=== PATIENT | female | born 1945 | race Caucasian/White ===

== ENCOUNTER 2020-08-17 13:46 | Inpatient (IN) | payer MEDICARE ==
[~2020-08-17] VITALS: Ht 154.9 cm; Wt 97.6 kg
[2020-08-17] MEDS ORDERED: ASPIRIN 81 MG CHEW TAB PO ONE (15:45)
[2020-08-17 16:18] LABS: BASOPHILS # (AUTO) 0.1 (0.0-0.1); BASOPHILS % 0.5 % (0.0-1.0); EOSINOPHILS # (AUTO) 0.1 (0.0-0.4); EOSINOPHILS % 0.4 % (0.0-6.0); HEMATOCRIT 32.6 % (34.2-44.1); HEMOGLOBIN 11.2 g/dL (12.0-16.0); LYMPHOCYTES % 39.6 % (18.0-39.1); MEAN CORPUSCULAR HEMOGLOBIN 31.6 pg (28-32); MEAN CORPUSCULAR HGB CONC 34.4 g/dL (31-35); MEAN CORPUSCULAR VOLUME 92.1 fL (81-99); MONOCYTES % 7.6 % (4.4-11.3); NEUTROPHILS # (AUTO) 6.4 (2.1-6.9); NEUTROPHILS % 51.5 % (38.7-80.0); PLATELET COUNT 321 x10e3/uL (140-360); RED BLOOD COUNT 3.54 x10e6/uL (3.6-5.1); RED CELL DISTRIBUTION WIDTH 15.9 % (11.7-14.4)
[2020-08-17 16:30] LABS: ALBUMIN 1.3 g/dL (3.5-5.0); ALBUMIN/GLOBULIN RATIO 0.4 (0.8-2.0); ANION GAP 15.1 mmol/L (8-16); CREATININE, SERUM 1.28 mg/dL (0.57-1.11); POTASSIUM 4.1 mmol/L (3.5-5.1)
[2020-08-17 16:34] LABS: CALCIUM 6.8 mg/dL (8.4-10.2)
[2020-08-17 16:46] LABS: CREATINE KINASE MB 0.6 ng/mL (0-5.0)
[2020-08-17 16:57] LABS: CLARITY,URINE SL CLOUDY (CLEAR); COLOR,URINE STRAW (YELLOW); KETONES,URINE NEGATIVE (NEGATIVE); LEUKOCYTE ESTERASE ,URINE LARGE (NEGATIVE); NITRITE,URINE NEGATIVE (NEGATIVE); PROTEIN,URINE DIPSTICK NEGATIVE (NEGATIVE); URINE UROBILINOGEN 0.2 mg/dL (0.2 - 1)
[2020-08-17] MEDS ORDERED: CEFEPIME 1GM/NS 0.9% 50 ML 50 ML IV STA (17:04)
[2020-08-17] MEDS ORDERED: SODIUM CHLORIDE 0.9% 1000ML 1,000 ML IV STA ×2 (17:08→17:33)
[2020-08-17 17:11] LABS: BACTERIA,URINE MANY /HPF; WBC,URINE (MAN) 0-5 /HPF (0-5)
[2020-08-17 17:12] LABS: RBC,URINE 0-5 /HPF (0-5)
[2020-08-17] MEDS ORDERED: ALBUMIN 25% 25GM 100ML 0.25 GM/ML BTL IV ONE ×2 (18:45)
[2020-08-17] MEDS ORDERED: ALBUMIN 25% 25GM 100ML 100 ML IV ONE ×2 (19:00→20:00)
[2020-08-17] MEDS ORDERED: CALCIUM GLUCONATE 10% INJ 9.3 MEQ in SODIUM CHLORIDE 0.9% 100 ML 100 ML IV ONE (19:00)
[2020-08-17] MEDS ORDERED: DEXTROSE 50% SYRINGE 50 ML IV STA (19:04)
[2020-08-17] MEDS ORDERED: DEXTROSE 50% SYRINGE 50 ML IV ONE (19:05)
[2020-08-17] MEDS ORDERED: DICYCLOMINE HCL10 MG PO (19:17)
[2020-08-17] MEDS ORDERED: PROMETHAZINE HC25 M1 PO (19:17)
[2020-08-17] MEDS ORDERED: SENNA LAX8.6 MG PO (19:17)
[2020-08-17] MEDS ORDERED: FUROSEMIDE40 MG PO (19:17)
[2020-08-17] MEDS ORDERED: MEGESTROL ACETA40 MG PO (19:17)
[2020-08-17] MEDS ORDERED: CITALOPRAM HBR20 MG PO (19:17)
[2020-08-17] MEDS ORDERED: ZOFRAN4 MG PO (19:17)
[2020-08-17] MEDS ORDERED: ULTRAM50 MG PO (19:17)
[2020-08-17] MEDS ORDERED: PANTOPRAZOLE SO40 MG PO (19:17)
[2020-08-17] MEDS ORDERED: METOPROLOL TART50 MG PO (19:17)
[2020-08-17] MEDS ORDERED: METFORMIN HCL500 MG PO (19:17)
[2020-08-17] MEDS ORDERED: ONDANSETRON HCL INJ 2MG/ML 2ML 2 MG/ML VIAL IV PRN (20:00)
[2020-08-17] MEDS ORDERED: DEXTROSE 5%/0.45% SOD CHL 1,000 ML IV ONE (21:15)
[2020-08-17 22:00] VITALS: BP 98/45
[2020-08-17] MEDS ORDERED: DEXTROSE 50% SYRINGE 50 ML IV PRN (22:00)
[2020-08-17 23:00] VITALS: BP 100/46
[2020-08-17] MEDS ORDERED: DEXTROSE 5%/0.9% SOD CHL 1,000 ML IV SCH (23:00)
[2020-08-17] MEDS ORDERED: NOREPINEPHRINE INJ 4MG/4ML 8 MG in DEXTROSE 5% 250ML 250 ML IV PRN (23:00)
[2020-08-17 23:59] VITALS: BP 98/43
[2020-08-18] VITALS (27 sets, daily range): BP systolic 81–114; BP diastolic 34–63
[2020-08-18] MEDS ORDERED: NOREPINEPHRINE 8 MG/D5W 250 ML 250 ML ONE (00:47)
[2020-08-18] MEDS ORDERED: PNEUMOCOCCAL VACCINE POLYVALENT 23 MCG/0.5 ML VIAL IM SCH (01:50)
[2020-08-18] MEDS ORDERED: INFLUENZA VIRUS VAC SPLIT INJ 0.5 ML SYR IM SCH (01:50)
[2020-08-18 05:27] LABS: BASOPHILS % 0.2 % (0.0-1.0); EOSINOPHILS # (AUTO) 0.1 (0.0-0.4); EOSINOPHILS % 0.6 % (0.0-6.0); HEMATOCRIT 23.1 % (34.2-44.1); LYMPHOCYTES # (AUTO) 3.3 (1.0-3.2); LYMPHOCYTES % 36.6 % (18.0-39.1); MEAN CORPUSCULAR HEMOGLOBIN 32.3 pg (28-32); MEAN CORPUSCULAR HGB CONC 34.6 g/dL (31-35); MEAN CORPUSCULAR VOLUME 93.1 fL (81-99); MONOCYTES % 10.5 % (4.4-11.3); NEUTROPHILS # (AUTO) 4.7 (2.1-6.9); NEUTROPHILS % 51.8 % (38.7-80.0); PLATELET COUNT 361 x10e3/uL (140-360); RED BLOOD COUNT 2.48 x10e6/uL (3.6-5.1); RED CELL DISTRIBUTION WIDTH 15.6 % (11.7-14.4)
[2020-08-18 06:31] LABS: ALBUMIN 2.2 g/dL (3.5-5.0); ANION GAP 14.1 mmol/L (8-16); CREATININE, SERUM 1.13 mg/dL (0.57-1.11); MAGNESIUM 1.2 MG/DL (1.3-2.1); PHOSPHORUS 2.7 MG/DL (2.3-4.7); POTASSIUM 3.1 mmol/L (3.5-5.1)
[2020-08-18 06:40] LABS: CALCIUM 6.9 mg/dL (8.4-10.2)
[2020-08-18 06:50] LABS: CREATINE KINASE MB 0.7 ng/mL (0-5.0)
[2020-08-18] MEDS ORDERED: INSULIN REGULAR, HUMAN 100 UNIT/1 ML 3ML VIAL SQ SCH (07:30)
[2020-08-18] MEDS ORDERED: TRAMADOL HCL 50 MG TAB PO PRN (07:45)
[2020-08-18] MEDS ORDERED: MAGNESIUM SULFATE 2GM/50ML IV ONE (07:45)
[2020-08-18] MEDS ORDERED: MAGNESIUM SULFATE 2GM/50ML 50 ML IV ONE (08:00)
[2020-08-18 08:24] LABS: IRON 40 ug/dL (50-170); TRANSFERRIN < 70 mg/dL (180-382)
[2020-08-18] MEDS ORDERED: POTASSIUM CHLORIDE 10MEQ EA PO ONE (08:30)
[2020-08-18 08:44] LABS: THYROID STIMULATING HORMONE 2.014 uIU/mL (0.350-4.940)
[2020-08-18] MEDS: D5NS/KCL 20MEQ 1,000 ML IV SCH ×2 (09:17→19:48)
[2020-08-18] MEDS: MEGESTROL ACETATE 40 MG TAB PO SCH (09:42)
[2020-08-18] MEDS: SENNOSIDES 8.6 MG TAB PO SCH (09:42)
[2020-08-18] MEDS: PANTOPRAZOLE SOD 40 MG TABEC PO SCH (09:42)
[2020-08-18] MEDS ORDERED: POTASSIUM PHOSPHATE 20 MM in SODIUM CHLORIDE 0.9% 250ML 250 ML IV SCH (10:00)
[2020-08-18] MEDS ORDERED: IOPAMIDOL 370 MG/ML 200 ML INFUS..BTL INJ ONE (10:00)
[2020-08-18] MEDS ORDERED: SODIUM CHLORIDE 0.9% 50ML 50 ML ONE (10:00)
[2020-08-18] MEDS: INSULIN LISPRO 100 UNIT/1 ML 3ML VIAL SQ SCH ×3 (11:30→21:00)
[2020-08-18 12:31] LABS: CREATINE KINASE MB 0.7 ng/mL (0-5.0)
[2020-08-18] MEDS: ONDANSETRON HCL INJ 2MG/ML 2ML 2 MG/ML VIAL IV PRN (13:00)
[2020-08-19] VITALS (19 sets, daily range): BP systolic 95–134; BP diastolic 41–61
[2020-08-19 05:56] LABS: BASOPHILS % 0.5 % (0.0-1.0); EOSINOPHILS # (AUTO) 0.2 (0.0-0.4); EOSINOPHILS % 1.9 % (0.0-6.0); HEMATOCRIT 23.4 % (34.2-44.1); HEMOGLOBIN 7.9 g/dL (12.0-16.0); LYMPHOCYTES # (AUTO) 3.2 (1.0-3.2); LYMPHOCYTES % 41.1 % (18.0-39.1); MEAN CORPUSCULAR HGB CONC 33.8 g/dL (31-35); MEAN CORPUSCULAR VOLUME 94.7 fL (81-99); MONOCYTES # (AUTO) 0.8 (0.2-0.8); MONOCYTES % 10.7 % (4.4-11.3); NEUTROPHILS # (AUTO) 3.6 (2.1-6.9); NEUTROPHILS % 45.5 % (38.7-80.0); PLATELET COUNT 356 x10e3/uL (140-360); RED BLOOD COUNT 2.47 x10e6/uL (3.6-5.1); RED CELL DISTRIBUTION WIDTH 16.1 % (11.7-14.4)
[2020-08-19] MEDS: PANTOPRAZOLE SOD 40 MG TABEC PO SCH (06:12)
[2020-08-19] MEDS: D5NS/KCL 20MEQ 1,000 ML IV SCH ×2 (06:12→14:00)
[2020-08-19 06:27] LABS: ANION GAP 11.3 mmol/L (8-16); BLOOD UREA NITROGEN 13 mg/dL (7-26); BUN/CREATININE RATIO 16 (6-25); CARBON DIOXIDE 18 mmol/L (22-29); CHLORIDE 111 mmol/L (98-107); CREATININE, SERUM 0.83 mg/dL (0.57-1.11); EST GLOMERULAR FILTRATION RATE > 60 ML/MIN (60-); GLUCOSE 97 mg/dL (74-118); POTASSIUM 3.3 mmol/L (3.5-5.1); SODIUM 137 mmol/L (136-145)
[2020-08-19 06:28] LABS: CALCIUM 6.6 mg/dL (8.4-10.2)
[2020-08-19 06:43] LABS: MAGNESIUM 1.5 MG/DL (1.3-2.1); PHOSPHORUS 2.6 MG/DL (2.3-4.7)
[2020-08-19] MEDS: INSULIN LISPRO 100 UNIT/1 ML 3ML VIAL SQ SCH ×4 (07:30→21:00)
[2020-08-19] MEDS ORDERED: MAGNESIUM SULFATE 2GM/50ML IV ONE (08:30)
[2020-08-19] MEDS: SENNOSIDES 8.6 MG TAB PO SCH (08:32)
[2020-08-19] MEDS: MEGESTROL ACETATE 40 MG TAB PO SCH (08:32)
[2020-08-19] MEDS: IRON SUCROSE 100 MG in SODIUM CHLORIDE 0.9% 100 ML 100 ML IV SCH (09:03)
[2020-08-19] MEDS ORDERED: POTASSIUM CHLORIDE 10MEQ EA PO ONE (09:15)
[2020-08-19] MEDS: ONDANSETRON HCL INJ 2MG/ML 2ML 2 MG/ML VIAL IV PRN (09:43)
[2020-08-19] MEDS ORDERED: MAGNESIUM SULFATE 2GM/50ML 50 ML IV ONE (10:00)
[2020-08-19] MEDS ORDERED: POTASSIUM PHOSPHATE 20 MM in SODIUM CHLORIDE 0.9% 250ML 250 ML IV ONE (12:00)
[2020-08-19] MEDS: ENOXAPARIN SOD INJ 40 MG/0.4 ML SYR SC SCH (17:00)
[2020-08-20] VITALS (7 sets, daily range): BP systolic 108–137; BP diastolic 52–80
[2020-08-20] MEDS: D5NS/KCL 20MEQ 1,000 ML IV SCH (02:00)
[2020-08-20] MEDS: PANTOPRAZOLE SOD 40 MG TABEC PO SCH (05:17)
[2020-08-20 06:56] LABS: MAGNESIUM 1.8 MG/DL (1.3-2.1); PHOSPHORUS 2.2 MG/DL (2.3-4.7)
[2020-08-20 07:20] LABS: ANION GAP 11.5 mmol/L (8-16); BLOOD UREA NITROGEN 7 mg/dL (7-26); BUN/CREATININE RATIO 11 (6-25); CARBON DIOXIDE 17 mmol/L (22-29); CHLORIDE 115 mmol/L (98-107); CREATININE, SERUM 0.66 mg/dL (0.57-1.11); EST GLOMERULAR FILTRATION RATE > 60 ML/MIN (60-); GLUCOSE 95 mg/dL (74-118); SODIUM 139 mmol/L (136-145)
[2020-08-20] MEDS: INSULIN LISPRO 100 UNIT/1 ML 3ML VIAL SQ SCH ×4 (07:30→20:42)
[2020-08-20 07:38] LABS: CALCIUM 6.9 mg/dL (8.4-10.2); POTASSIUM 4.5 mmol/L (3.5-5.1)
[2020-08-20] MEDS ORDERED: CALCIUM GLUCONATE 10% INJ 4.65 MEQ in SODIUM CHLORIDE 0.9% 50ML 50 ML IV PRN (08:00)
[2020-08-20] MEDS: MEGESTROL ACETATE 40 MG TAB PO SCH (09:23)
[2020-08-20] MEDS: SENNOSIDES 8.6 MG TAB PO SCH (09:23)
[2020-08-20] MEDS ORDERED: POTASSIUM CHLORIDE 10MEQ EA PO ONE (10:00)
[2020-08-20] MEDS ORDERED: FUROSEMIDE INJ 10 MG/ML 4 ML VIAL IV ONE (10:00)
[2020-08-20] MEDS: MEROPENEM 1GM 100 ML IV SCH ×2 (10:55→21:10)
[2020-08-20] MEDS: IRON SUCROSE 100 MG in SODIUM CHLORIDE 0.9% 100 ML 100 ML IV SCH (12:00)
[2020-08-20] MEDS: DEXTROSE 50% SYRINGE 50 ML IV PRN (12:55)
[2020-08-20] MEDS: FAMOTIDINE 20 MG TAB PO SCH (17:21)
[2020-08-20] MEDS: ENOXAPARIN SOD INJ 40 MG/0.4 ML SYR SC SCH (17:21)
[2020-08-20] MEDS: MIRTAZAPINE 15 MG TAB PO SCH (21:10)
[2020-08-21] VITALS: BP 138/67
[2020-08-21 06:00] VITALS: BP 113/61
[2020-08-21] MEDS: PANTOPRAZOLE SOD 40 MG TABEC PO SCH (06:46)
[2020-08-21 07:06] LABS: BASOPHILS # (AUTO) 0.1 (0.0-0.1); BASOPHILS % 0.7 % (0.0-1.0); EOSINOPHILS # (AUTO) 0.3 (0.0-0.4); EOSINOPHILS % 3.5 % (0.0-6.0); HEMATOCRIT 27.1 % (34.2-44.1); HEMOGLOBIN 8.9 g/dL (12.0-16.0); LYMPHOCYTES # (AUTO) 3.2 (1.0-3.2); LYMPHOCYTES % 37.3 % (18.0-39.1); MEAN CORPUSCULAR HEMOGLOBIN 31.6 pg (28-32); MEAN CORPUSCULAR HGB CONC 32.8 g/dL (31-35); MEAN CORPUSCULAR VOLUME 96.1 fL (81-99); MONOCYTES # (AUTO) 0.8 (0.2-0.8); MONOCYTES % 8.9 % (4.4-11.3); NEUTROPHILS # (AUTO) 4.3 (2.1-6.9); NEUTROPHILS % 49.3 % (38.7-80.0); PLATELET COUNT 336 x10e3/uL (140-360); RED BLOOD COUNT 2.82 x10e6/uL (3.6-5.1); RED CELL DISTRIBUTION WIDTH 15.9 % (11.7-14.4)
[2020-08-21 07:28] LABS: ANION GAP 11.7 mmol/L (8-16); BLOOD UREA NITROGEN 6 mg/dL (7-26); BUN/CREATININE RATIO 10 (6-25); CALCIUM 7.1 mg/dL (8.4-10.2); CARBON DIOXIDE 18 mmol/L (22-29); CHLORIDE 113 mmol/L (98-107); CREATININE, SERUM 0.62 mg/dL (0.57-1.11); EST GLOMERULAR FILTRATION RATE > 60 ML/MIN (60-); GLUCOSE 81 mg/dL (74-118); POTASSIUM 4.7 mmol/L (3.5-5.1); SODIUM 138 mmol/L (136-145)
[2020-08-21] MEDS: INSULIN LISPRO 100 UNIT/1 ML 3ML VIAL SQ SCH ×4 (07:30→20:54)
[2020-08-21 07:55] VITALS: BP 113/61
[2020-08-21 08:38] VITALS: BP 106/50
[2020-08-21] MEDS: IRON SUCROSE 100 MG in SODIUM CHLORIDE 0.9% 100 ML 100 ML IV SCH (09:42)
[2020-08-21] MEDS: SENNOSIDES 8.6 MG TAB PO SCH (09:43)
[2020-08-21] MEDS: MEGESTROL ACETATE 40 MG TAB PO SCH (09:43)
[2020-08-21] MEDS: FAMOTIDINE 20 MG TAB PO SCH ×2 (09:43→17:03)
[2020-08-21] MEDS: ONDANSETRON HCL INJ 2MG/ML 2ML 2 MG/ML VIAL IV PRN ×3 (11:20→21:48)
[2020-08-21] MEDS: MEROPENEM 1GM 100 ML IV SCH ×2 (13:04→20:57)
[2020-08-21 16:21] VITALS: BP 127/62
[2020-08-21] MEDS: FUROSEMIDE INJ 100 MG in SODIUM CHLORIDE 0.9% 100 ML 90 ML IV SCH (16:51)
[2020-08-21] MEDS: MIDODRINE 2.5 MG TAB PO SCH (17:02)
[2020-08-21] MEDS: ENOXAPARIN SOD INJ 40 MG/0.4 ML SYR SC SCH (17:03)
[2020-08-21] MEDS: ALBUMIN 25% 25GM 100ML 0.25 GM/ML BTL IV SCH (18:13)
[2020-08-21 20:32] VITALS: BP 115/59
[2020-08-21] MEDS: MIRTAZAPINE 15 MG TAB PO SCH (20:57)
[2020-08-22] VITALS (8 sets, daily range): BP systolic 105–124; BP diastolic 44–91
[2020-08-22] MEDS: PANTOPRAZOLE SOD 40 MG TABEC PO SCH (05:42)
[2020-08-22 06:09] LABS: BASOPHILS % 0.5 % (0.0-1.0); EOSINOPHILS # (AUTO) 0.2 (0.0-0.4); EOSINOPHILS % 3.8 % (0.0-6.0); LYMPHOCYTES # (AUTO) 2.4 (1.0-3.2); LYMPHOCYTES % 39.2 % (18.0-39.1); MEAN CORPUSCULAR HGB CONC 33.5 g/dL (31-35); MEAN CORPUSCULAR VOLUME 95.6 fL (81-99); MONOCYTES # (AUTO) 0.6 (0.2-0.8); MONOCYTES % 9.2 % (4.4-11.3); NEUTROPHILS # (AUTO) 2.9 (2.1-6.9); PLATELET COUNT 240 x10e3/uL (140-360); RED BLOOD COUNT 2.25 x10e6/uL (3.6-5.1); RED CELL DISTRIBUTION WIDTH 15.8 % (11.7-14.4)
[2020-08-22 06:29] LABS: ANION GAP 10.3 mmol/L (8-16); BLOOD UREA NITROGEN 6 mg/dL (7-26); BUN/CREATININE RATIO 10 (6-25); CARBON DIOXIDE 20 mmol/L (22-29); CHLORIDE 112 mmol/L (98-107); CREATININE, SERUM 0.62 mg/dL (0.57-1.11); EST GLOMERULAR FILTRATION RATE > 60 ML/MIN (60-); GLUCOSE 71 mg/dL (74-118); POTASSIUM 3.3 mmol/L (3.5-5.1); SODIUM 139 mmol/L (136-145)
[2020-08-22 06:35] LABS: HEMATOCRIT 21.5 % (34.2-44.1); HEMOGLOBIN 7.2 g/dL (12.0-16.0)
[2020-08-22] MEDS: INSULIN LISPRO 100 UNIT/1 ML 3ML VIAL SQ SCH ×4 (07:30→21:00)
[2020-08-22] MEDS: ALBUMIN 25% 25GM 100ML 0.25 GM/ML BTL IV SCH ×2 (09:34→17:51)
[2020-08-22] MEDS: MIDODRINE 2.5 MG TAB PO SCH ×3 (09:45→17:56)
[2020-08-22] MEDS: FAMOTIDINE 20 MG TAB PO SCH ×2 (09:45→17:58)
[2020-08-22] MEDS: SENNOSIDES 8.6 MG TAB PO SCH (09:46)
[2020-08-22] MEDS: ONDANSETRON HCL INJ 2MG/ML 2ML 2 MG/ML VIAL IV PRN (09:47)
[2020-08-22] MEDS: MEGESTROL ACETATE 40 MG TAB PO SCH (09:47)
[2020-08-22] MEDS: MEROPENEM 1GM 100 ML IV SCH ×2 (12:19→21:23)
[2020-08-22] MEDS: IRON SUCROSE 100 MG in SODIUM CHLORIDE 0.9% 100 ML 100 ML IV SCH (13:25)
[2020-08-22] MEDS ORDERED: POTASSIUM CHLORIDE 20 MEQ TAB CR PO STA (15:06)
[2020-08-22] MEDS: METOCLOPRAMIDE HCL 10 MG/2ML VIAL IV SCH (17:53)
[2020-08-22] MEDS: FUROSEMIDE INJ 100 MG in SODIUM CHLORIDE 0.9% 100 ML 90 ML IV SCH (17:55)
[2020-08-22] MEDS: ENOXAPARIN SOD INJ 40 MG/0.4 ML SYR SC SCH (17:58)
[2020-08-22] MEDS: DEXTROSE 50% SYRINGE 50 ML IV PRN (20:15)
[2020-08-22] MEDS ORDERED: POTASSIUM CHLORIDE 20 MEQ TAB CR PO ONE (21:00)
[2020-08-22] MEDS: MIRTAZAPINE 15 MG TAB PO SCH (21:23)
[2020-08-23] VITALS (9 sets, daily range): BP systolic 88–111; BP diastolic 44–61
[2020-08-23] MEDS: ONDANSETRON HCL INJ 2MG/ML 2ML 2 MG/ML VIAL IV PRN (02:17)
[2020-08-23] MEDS: DEXTROSE 50% SYRINGE 50 ML IV PRN (02:18)
[2020-08-23] MEDS: PANTOPRAZOLE SOD 40 MG TABEC PO SCH (05:05)
[2020-08-23 07:06] LABS: BASOPHILS % 0.7 % (0.0-1.0); EOSINOPHILS # (AUTO) 0.2 (0.0-0.4); MEAN CORPUSCULAR HGB CONC 33.2 g/dL (31-35); MEAN CORPUSCULAR VOLUME 96.3 fL (81-99); MONOCYTES # (AUTO) 0.6 (0.2-0.8); MONOCYTES % 10.6 % (4.4-11.3); NEUTROPHILS # (AUTO) 2.9 (2.1-6.9); NEUTROPHILS % 50.5 % (38.7-80.0); PLATELET COUNT 246 x10e3/uL (140-360); RED BLOOD COUNT 2.19 x10e6/uL (3.6-5.1); RED CELL DISTRIBUTION WIDTH 15.7 % (11.7-14.4)
[2020-08-23 07:12] LABS: HEMATOCRIT 21.1 % (34.2-44.1)
[2020-08-23] MEDS: INSULIN LISPRO 100 UNIT/1 ML 3ML VIAL SQ SCH ×4 (07:30→20:26)
[2020-08-23] MEDS: FAMOTIDINE 20 MG TAB PO SCH ×2 (08:00→16:31)
[2020-08-23 08:08] LABS: ANION GAP 10.2 mmol/L (8-16); BLOOD UREA NITROGEN 6 mg/dL (7-26); BUN/CREATININE RATIO 18 (6-25); CALCIUM 7.1 mg/dL (8.4-10.2); CARBON DIOXIDE 22 mmol/L (22-29); CHLORIDE 111 mmol/L (98-107); CREATININE, SERUM 0.33 mg/dL (0.57-1.11); EST GLOMERULAR FILTRATION RATE > 60 ML/MIN (60-); GLUCOSE 72 mg/dL (74-118); POTASSIUM 3.2 mmol/L (3.5-5.1); SODIUM 140 mmol/L (136-145)
[2020-08-23] MEDS: METOCLOPRAMIDE HCL 10 MG/2ML VIAL IV SCH ×3 (09:17→20:25)
[2020-08-23] MEDS: MEGESTROL ACETATE 40 MG TAB PO SCH (09:17)
[2020-08-23] MEDS: SENNOSIDES 8.6 MG TAB PO SCH (09:17)
[2020-08-23] MEDS: MIDODRINE HCL 5 MG TABLET PO SCH ×3 (09:19→16:31)
[2020-08-23] MEDS: MEROPENEM 1GM 100 ML IV SCH ×2 (09:19→22:00)
[2020-08-23] MEDS ORDERED: SODIUM CHLORIDE 0.9% 250ML 250 ML ONE ×2 (09:39→20:04)
[2020-08-23] MEDS ORDERED: SODIUM CHLORIDE 0.9% 250ML 250 ML IV SCH (14:30)
[2020-08-23] MEDS ORDERED: POTASSIUM CHLORIDE 20 MEQ TAB CR PO PRN (14:45)
[2020-08-23] MEDS: FUROSEMIDE INJ 100 MG in SODIUM CHLORIDE 0.9% 100 ML 90 ML IV SCH (15:18)
[2020-08-23] MEDS: ENOXAPARIN SOD INJ 40 MG/0.4 ML SYR SC SCH (16:31)
[2020-08-23] MEDS: MIRTAZAPINE 15 MG TAB PO SCH (20:25)
[2020-08-24] VITALS: BP 125/56
[2020-08-24 04:00] VITALS: BP 128/62
[2020-08-24 05:31] LABS: BASOPHILS % 0.6 % (0.0-1.0); EOSINOPHILS # (AUTO) 0.2 (0.0-0.4); EOSINOPHILS % 2.5 % (0.0-6.0); HEMATOCRIT 35.2 % (34.2-44.1); LYMPHOCYTES # (AUTO) 2.4 (1.0-3.2); LYMPHOCYTES % 35.6 % (18.0-39.1); MEAN CORPUSCULAR HEMOGLOBIN 30.9 pg (28-32); MEAN CORPUSCULAR HGB CONC 34.1 g/dL (31-35); MONOCYTES # (AUTO) 0.6 (0.2-0.8); MONOCYTES % 9.2 % (4.4-11.3); NEUTROPHILS # (AUTO) 3.5 (2.1-6.9); NEUTROPHILS % 51.7 % (38.7-80.0); PLATELET COUNT 217 x10e3/uL (140-360); RED CELL DISTRIBUTION WIDTH 15.1 % (11.7-14.4)
[2020-08-24 05:41] LABS: RED BLOOD COUNT 3.88 x10e6/uL (3.6-5.1)
[2020-08-24 05:42] LABS: MEAN CORPUSCULAR VOLUME 90.7 fL (81-99)
[2020-08-24] MEDS: PANTOPRAZOLE SOD 40 MG TABEC PO SCH (05:44)
[2020-08-24 06:05] LABS: BLOOD UREA NITROGEN 6 mg/dL (7-26); BUN/CREATININE RATIO 10 (6-25); CALCIUM 7.3 mg/dL (8.4-10.2); CARBON DIOXIDE 23 mmol/L (22-29); CHLORIDE 109 mmol/L (98-107); CREATININE, SERUM 0.58 mg/dL (0.57-1.11); EST GLOMERULAR FILTRATION RATE > 60 ML/MIN (60-); GLUCOSE 75 mg/dL (74-118); SODIUM 139 mmol/L (136-145)
[2020-08-24] MEDS: INSULIN LISPRO 100 UNIT/1 ML 3ML VIAL SQ SCH ×2 (07:30→11:30)
[2020-08-24] MEDS: FAMOTIDINE 20 MG TAB PO SCH (08:15)
[2020-08-24] MEDS: MEGESTROL ACETATE 40 MG TAB PO SCH (08:16)
[2020-08-24] MEDS: SENNOSIDES 8.6 MG TAB PO SCH (08:16)
[2020-08-24] MEDS: MIDODRINE HCL 5 MG TABLET PO SCH ×2 (08:16→13:52)
[2020-08-24] MEDS: MEROPENEM 1GM 100 ML IV SCH (08:18)
[2020-08-24] MEDS: METOCLOPRAMIDE HCL 10 MG/2ML VIAL IV SCH ×2 (08:18→14:35)
[2020-08-24 08:22] VITALS: BP 120/59
[2020-08-24 08:31] VITALS: BP 120/59
[2020-08-24 12:15] VITALS: BP 141/60
[2020-08-24] MEDS ORDERED: POTASSIUM CHLORIDE 20 MEQ TAB CR PO ONE ×2 (14:51→16:00)
[2020-08-24] MEDS ORDERED: FOSFOMYCIN TROMETHAMINE 3 GM PACKET PO ONE (16:00)
[2020-08-24 17:26] VITALS: BP 138/59
== END 2020-08-24 21:09 | disposition home health service (06) | DRG 871 ==
LOC: ER 14:13 → ERHOLD 18:54 → ICU 22:15 → MED/SURG2 08-19 14:33
PROVIDERS: ADMIT Internal Medicine; ATTEND Internal Medicine
PROC: 02HV33Z Insertion of Infusion Device into Superior Vena Cava, Percutaneous Approach (ICD-10-PCS; principal; 2020-08-17)
PROC: 30243N1 Transfusion of Nonautologous Red Blood Cells into Central Vein, Percutaneous Approach (ICD-10-PCS; 2020-08-17)
DX: A41.51 Sepsis due to Escherichia coli [E. coli] (principal); R65.21 Severe sepsis with septic shock; E43 Unspecified severe protein-calorie malnutrition; N17.9 Acute kidney failure, unspecified; Z16.12 Extended spectrum beta lactamase (ESBL) resistance; N39.0 Urinary tract infection, site not specified; Z68.41 Body mass index [BMI] 40.0-44.9, adult; E88.09 Other disorders of plasma-protein metabolism, not elsewhere classified; D50.9 Iron deficiency anemia, unspecified; Z20.828 Contact with and (suspected) exposure to other viral communicable diseases; E86.0 Dehydration; E66.01 Morbid (severe) obesity due to excess calories; Z74.01 Bed confinement status; F32.9 Major depressive disorder, single episode, unspecified; I89.0 Lymphedema, not elsewhere classified; R19.7 Diarrhea, unspecified; E11.649 Type 2 diabetes mellitus with hypoglycemia without coma; R60.0 Localized edema; L89.322 Pressure ulcer of left buttock, stage 2; L89.312 Pressure ulcer of right buttock, stage 2; W18.30XA Fall on same level, unspecified, initial encounter; Y93.9 Activity, unspecified; Y92.002 Bathroom of unspecified non-institutional (private) residence as the place of occurrence of the external cause
CPT/HCPCS: 36415; 36569; 51700; 71045; 74177; 80048; 80053; 81001; 82270; 82550; 82553; 82607; 82746; 82948; 83540; 83605; 83735; 83880; 84100; 84443; 84466; 84484; 85025; 86850; 86900; 86920; 87040; 87086; 87186; 87493; 93005; 93306; 94660; 97139; 99251; 99284; J0610; J0692; J1650; J1756; J1940; J2405; J2765; J3475; J7030; J7042; J7050; J7799; P9016; P9047; Q9967; U0002